=== PATIENT | male | born 1975 | race Caucasian/White ===

== ENCOUNTER 2021-02-09 22:52 | Emergency (ER) | payer MEDICARE, OTHER ==
[~2021-02-09 22:52] MED LIST: Iopamidol 370 76% 100 ML VIAL ONE
[2021-02-09 23:13] LABS: #Basophils 0.1 thou/uL (0.0-0.2); #Lymphocytes 2.8 thou/uL (1.20-3.40); #Monocytes 1.1 thou/uL (0.11-0.59); #Neutrophils 13.8 thou/uL (1.40-6.50); %Basophils 0.7 % (0.0-1.0); %Eosinophils 0.2 % (0.0-10.0); %Lymphocytes 15.5 % (21.0-51.0); %Neutrophils 77.6 % (42.0-75.0); Hemoglobin 16.1 g/dL (14.0-18.0); Mean Corpuscular Hemoglobin 29.4 pg (27.0-31.0); Mean Corpuscular Volume 91.8 fL (78.0-98.0); Mean Platelet Volume 9.6 fL (7.4-10.4); Platelet Count 236 thou/uL (130-400); RBC Distribution Width 13.5 % (11.5-14.5); Red Blood Cell (RBC) Count 5.49 mill/uL (4.70-6.10); White Blood Cell (WBC) Count 17.8 thou/uL (4.8-10.8)
[2021-02-09] MEDS ORDERED: Magnesium 2 GM/50 ML BAG (IN WATER) ONE (23:16)
[2021-02-09 23:28] LABS: ALT (SGPT) 18 U/L (8-55); AST (SGOT) 15 U/L (5-34); Albumin 4.4 g/dL (3.5-5.0); Alkaline Phosphatase 88 U/L (40-110); Anion Gap 16 mmol/L (10-20); BUN (Urea Nitrogen) 9 mg/dL (8.9-20.6); Bilirubin, Total 0.7 mg/dL (0.2-1.2); Calc. Creatinine Clearance 0 mL/min (70-130); Calcium 9.4 mg/dL (7.8-10.44); Carbon Dioxide 22 mmol/L (22-29); Chloride 104 mmol/L (98-107); Glucose 91 mg/dL (70-105); Potassium 4.1 mmol/L (3.5-5.1); Protein, Total 7.4 g/dL (6.0-8.3); Sodium 138 mmol/L (136-145)
[2021-02-09 23:51] LABS: Bilirubin Negative (Negative); Blood, Urine Negative (Negative); Clarity Clear (Clear); Glucose, Urine (Dipstick) Negative (Negative); Ketone, Urine Negative (Negative); Leukocyte Negative (Negative); Nitrite Negative (Negative); Protein, Urine (Dipstick) Negative (Neg-Trace); Specific Gravity, Urine 1.015 (1.005-1.030); Urobilinogen 0.2 mg/dL (Less than 2)
[2021-02-10] MEDS ORDERED: Sodium Chloride 0.9% 100 ML ONE (00:05)
[2021-02-10] MEDS ORDERED: cefTRIAXone\\ROCEPHIN 2 GM VIAL ONE (00:05)
[2021-02-10] MEDS ORDERED: Sodium Chloride 0.9% 250 ML 250 ML ONE (00:30)
[2021-02-10] MEDS ORDERED: Azithromycin 500 MG VIAL ONE (00:30)
[2021-02-10 00:58] LABS: SARS-CoV-2 NAA Rapid Test Not Detected (NotDetected)
== END 2021-02-10 02:25 | disposition short-term general hospital (02) ==
LOC: NAV ERS 22:52
DX: J18.9 Pneumonia, unspecified organism (principal); J44.9 Chronic obstructive pulmonary disease, unspecified; Z20.822 Contact with and (suspected) exposure to COVID-19; I10 Essential (primary) hypertension; F17.210 Nicotine dependence, cigarettes, uncomplicated; Z79.899 Other long term (current) drug therapy
CPT/HCPCS: 0241U; 71045; 71260; 80053; 81003; 83605; 83880; 84484; 85025; 87040; 93005; 94760; 96365; 96367; 99285; J0456; J0696; J3475; J3490; J7050; Q9967